=== PATIENT | female | born 1970 | race African-American/Black ===

== ENCOUNTER 2022-01-08 21:44 | Emergency (ER) | payer OTHER ==
[2022-01-08 21:55] VITALS: BP 132/90; PULSE 88; RESP 16; TEMP 98.4; BMI 33.3
[2022-01-08] MEDS ORDERED: SULFAMETHOXAZOLE/TRIMETHOPRIM 800MG/160MG D.S. TABLET PO ONE (22:45)
[2022-01-08] MEDS ORDERED: SULFAMETHOXAZOLE/TRIMETHOPRIM 800MG/160MG D.S. TABLET ONE (22:48)
[2022-01-08] MEDS ORDERED: ACETAMINOPHEN 500 MG TABLET (FP) PO ONE (22:51)
[2022-01-08] MEDS ORDERED: ACETAMINOPHEN 325 MG TABLET (FP) ONE (22:52)
== END 2022-01-08 22:53 | disposition home or self-care (01) ==
LOC: FER 21:44
DX: L03.116 Cellulitis of left lower limb (principal)
CPT/HCPCS: 99283-25

== ENCOUNTER 2022-07-07 19:20 | Emergency (ER) | payer OTHER ==
[2022-07-07 19:33] VITALS: BP 141/98; PULSE 87; RESP 16; TEMP 98.6; BMI 32.1
[2022-07-07] MEDS ORDERED: ALBUTEROL SO4 2.5/IPRATROPIUM 0.5 INH SOL 3 ML VIAL.NEB. NEB ONE ×4 (19:37→20:16)
[2022-07-07] MEDS ORDERED: methylPREDNISolone NA SUCC 125 MG/2 ML VIAL IVPB ONE (20:10)
[2022-07-07] MEDS ORDERED: methylPREDNISolone NA SUCC 125 MG/2 ML VIAL ONE (20:16)
== END 2022-07-07 21:35 | disposition home or self-care (01) ==
LOC: FER 19:20
PROC: 3E0F7GC Introduction of Other Therapeutic Substance into Respiratory Tract, Via Natural or Artificial Opening (ICD-10-PCS; principal; 2022-07-07)
PROC: 3E0F7GC Introduction of Other Therapeutic Substance into Respiratory Tract, Via Natural or Artificial Opening (ICD-10-PCS; 2022-07-07)
PROC: 3E033GC Introduction of Other Therapeutic Substance into Peripheral Vein, Percutaneous Approach (ICD-10-PCS; 2022-07-07)
DX: R05.1 Acute cough (principal); X02.1XXA Exposure to smoke in controlled fire in building or structure, initial encounter
CPT/HCPCS: 71046-TC-FY; 99284-25

== ENCOUNTER 2024-03-15 12:28 | Emergency (ER) | payer OTHER ==
[2024-03-15 13:18] VITALS: TEMP 98.4; BMI 33.4
[2024-03-15] MEDS ORDERED: ACETAMINOPHEN INJECTION 100 ML ONE (13:36)
[2024-03-15] MEDS ORDERED: METOCLOPRAMIDE HCL INJECTION 10 MG/2 ML VIAL ONE (13:36)
[2024-03-15] MEDS: ACETAMINOPHEN 1000 MG/100 ML BAG IVPB ONE (14:01)
[2024-03-15] MEDS: METOCLOPRAMIDE HCL INJECTION 10 MG/2 ML VIAL IVPUSH ONE (14:02)
[2024-03-15] MEDS: PROCHLORPERAZINE INJECTION 10 MG/2 ML VIAL IVPB ONE (14:02)
[2024-03-15] MEDS: LACTATED RINGERS SOLUTION 1000 ML INFUS.BAG IV ONE (14:03)
[2024-03-15 14:18] LABS: HEMATOCRIT 44.8 % (32.4-45.2); MCH 30.5 pg (25.7-33.7); MCHC 33.6 g/dl (32.0-36.0); MEAN PLT VOLUME 9.3 fl (7.5-11.1); PLATELET COUNT 260 10^3/uL (134-434); RBC 4.92 M/mm3 (3.60-5.2); RDW 15.2 % (11.6-15.6)
[2024-03-15 14:32] LABS: POTASSIUM 4.2 mmol/L (3.5-5.1)
[2024-03-15 14:33] LABS: CALCIUM 9.2 mg/dL (8.5-10.1)
[2024-03-15 14:34] LABS: ALBUMIN 3.9 g/dl (3.4-5.0)
[2024-03-15 14:37] LABS: CREATININE 0.9 mg/dL (0.55-1.3)
[2024-03-15 14:38] LABS: BILIRUBIN,TOTAL 0.3 mg/dL (0.2-1)
[2024-03-15 14:39] LABS: TOT PROT 7.7 g/dl (6.4-8.2)
[2024-03-15 14:41] LABS: BLOOD UREA NITROGEN 14.8 mg/dL (7-18)
[2024-03-15 14:55] LABS: ANISOCYTOSIS 0; MACROCYTOSIS 0
[2024-03-15 14:55] LABS: EPI CELLS >36 /uL (0-25.1); HYALINE CASTS 1 /uL (0-3.1); PH,URINE 5.5 (5.0-8.0); URINE APPEARANCE CLOUDY; URINE BACTERIA 704 /uL (0-1359); URINE BILIRUBIN NEGATIVE (NEGATIVE); URINE COLOR YELLOW; URINE GLUCOSE (UA) NEGATIVE (NEGATIVE); URINE KETONE NEGATIVE (NEGATIVE); URINE LEUK ESTERASE TRACE (NEGATIVE); URINE NITRITE NEGATIVE (NEGATIVE); URINE PROTEIN NEGATIVE (NEGATIVE); URINE UROBILINOGEN 0.2 mg/dL (0.2-1.0); URINE WBC 12 /uL (0-25.8)
[2024-03-15 15:18] LABS: URINE RBC 40 /uL (0-23.9)
[2024-03-15 15:19] LABS: YEAST NONE SEEN (NEGATIVE)
[2024-03-15] MEDS: IBUPROFEN 800 MG/8 ML IJ IVPB ONE (15:54)
[2024-03-15 16:03] VITALS: BP 130/82; PULSE 83; RESP 18
[2024-03-15] MEDS ORDERED: IBUPROFEN 600 MG TABLET (FP) PO ONE (16:03)
[2024-03-15] MEDS: IBUPROFEN 600 MG TABLET (FP) PO ONE (16:04)
== END 2024-03-15 16:20 | disposition home or self-care (01) ==
LOC: JER 12:28
PROC: 3E033NZ Introduction of Analgesics, Hypnotics, Sedatives into Peripheral Vein, Percutaneous Approach (ICD-10-PCS; principal; 2024-03-15)
PROC: 3E033GC Introduction of Other Therapeutic Substance into Peripheral Vein, Percutaneous Approach (ICD-10-PCS; 2024-03-15)
DX: R51.9 Headache, unspecified (principal); R42 Dizziness and giddiness; R11.0 Nausea; R07.89 Other chest pain; Z20.822 Contact with and (suspected) exposure to COVID-19
CPT/HCPCS: 0241U-QW; 36415; 71045-TC-FY; 80053; 81003; 84484; 85025; 87086; 93005; 93010; 99285-25; J0131

== ENCOUNTER 2024-08-02 05:32 | Day surgery (SDC) | payer OTHER ==
[2024-07-31 09:34] VITALS: BMI 32.9
[2024-08-02] MEDS: ceFAZolin SODIUM 1 GM VIAL IVPB ONE (08:25)
[2024-08-02] MEDS ORDERED: PROPOFOL 20 ML ONE (12:46)
[2024-08-02] MEDS ORDERED: ONDANSETRON 4 MG/2 ML VIAL ONE ×2 (12:47→14:04)
[2024-08-02] MEDS ORDERED: LIDOCAINE HCL/PF 2% SDV 5ML VIAL ONE (12:47)
[2024-08-02] MEDS ORDERED: MIDAZOLAM HCL 2 MG/2 ML SINGLE DOSE VIAL ONE (12:47)
[2024-08-02] MEDS ORDERED: DEXAMETHASONE SOD PHOSPHATE 4 MG/1 ML VIAL ONE (12:47)
[2024-08-02] MEDS ORDERED: ceFAZolin SODIUM 1 GM VIAL ONE (13:21)
[2024-08-02] MEDS: ONDANSETRON 4 MG/2 ML VIAL IVPUSH PRN (14:06)
[2024-08-02] MEDS: LACTATED RINGERS SOLUTION 1,000 ML IV SCH (14:06)
[2024-08-02] MEDS ORDERED: ACETAMINOPHEN INJECTION 100 ML ONE (14:15)
[2024-08-02] MEDS: ACETAMINOPHEN 1000 MG/100 ML BAG IVPB ONE (14:16)
[2024-08-02 15:55] VITALS: TEMP 97
[2024-08-02 17:07] VITALS: BP 135/83; PULSE 72; RESP 16
== END 2024-08-02 17:12 | disposition home or self-care (01) ==
LOC: JASU-SURG 05:32
PROVIDERS: ATTEND Obstetrics & Gynecology
PROC: 0UB98ZX Excision of Uterus, Via Natural or Artificial Opening Endoscopic, Diagnostic (ICD-10-PCS; principal; 2024-08-02 14:00)
DX: D25.9 Leiomyoma of uterus, unspecified (principal)
CPT/HCPCS: 81025; 88305-TC; 94760; J0131